=== PATIENT | female | born 1955 | race Caucasian/White ===

== ENCOUNTER 2023-01-24 11:11 | Outpatient (CLI) | payer MEDICARE ==
--- NOTE | 2023-01-24 15:12 | Ultrasound Report ---
PROCEDURE: Pelvic Limited or F/U INDICATIONS: LEFT INGUINAL LYMPHADENOPATHY TECHNIQUE: Real-time transabdominal scanning was performed of the groin, with image documentation. COMPARISON: None. FINDINGS: Targeted ultrasound of the left groin demonstrates irregular cystic lesion without internal nodularit y measuring 0.9 x 0.9 x 3.4 cm. IMPRESSION: Targeted ultrasound of the left groin demonstrates an irregular cystic lesion without internal nodula rity measuring 0.9 x 0.9 x 3.47 m. Findings could represent a lymphocele or irregular cystic lymph no de. Recommend follow-up in 2-3 months to establish stability. Reviewed by: Russell Campoverde MD on 01/24/2023 3:10 PM PST Approved by: Russell Campoverde MD on 01/24/2023 3:10 PM PST Station ID: [id number]
== END 2023-01-24 11:12 | disposition home or self-care (01) ==
LOC: DI 11:11
PROVIDERS: ATTEND Registered Nurse
DX: R93.89 Abnormal findings on diagnostic imaging of other specified body structures (principal)

== ENCOUNTER 2023-02-23 12:25 | Day surgery (SDC) | payer MEDICARE ==
[~2023-02-23 12:25] MED LIST: ceFAZolin 2 GM VIAL ONE
[2023-02-23] MEDS ORDERED: LACTATED RINGERS 1,000 ML IV ONE ×2 (12:30→16:08)
--- NOTE | 2023-02-23 14:36 | ANESTHESIA ---
Pre-Anesthesia VS, & Labs - Diagnosis left inguinal hernia - Procedure left open inguinal hernia Vital Signs: Temp Pulse Resp BP Pulse Ox O2 Flow Rate 36.5 C 65 16 119/59 L 100 02/23/23 12:36 02/23/23 12:36 02/23/23 12:36 02/23/23 12:36 02/23/23 12:36 Height: 5 ft 4 in Weight (kg): 51.4 kg Body Mass Index: 19.4 BMI Classification: Normal - NPO >8 hours - Is Patient ?: No Home Medications and Allergies Home Medications: Ambulatory Orders Atorvastatin [Lipitor] 20 mg PO DAILY 02/16/23 Calcium Carbonate [Calcium] 600 mg PO DAILY 02/16/23 Multivitamin 1 each PO DAILY 02/16/23 lisinopriL [Zestril] 5 mg PO DAILY 02/16/23 Atorvastatin [Lipitor] 20 mg PO DAILY 02/16/23 Calcium Carbonate [Calcium] 600 mg PO DAILY 02/16/23 Multivitamin 1 each PO DAILY 02/16/23 lisinopriL [Zestril] 5 mg PO DAILY 02/16/23 Allergies/Adverse Reactions: Allergies Allergy/AdvReac Type Severity Reaction Status Date / Time No Known Drug Allergies Allergy Verified 02/16/23 11:37 Anes History & Medical History - Anesthetic History Anesthesia Complications: reports: No previous complications - Medical History Cardiovascular: reports: None, Hypertension Pulmonary: reports: None Gastrointestinal: reports: None Urinary: reports: None Neuro: reports: CVA (hemmoragic 5 years ago, 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) Musculoskeletal: reports: None Endocrine/Autoimmune: reports: None Skin: reports: None - Surgical History General: reports: Colonoscopy Gynecologic: reports: Other Orthopedic: reports: Hip replacement Exam General: Alert, Oriented x3, Cooperative Dental: WNL Mouth Opening: Greater than 4 Fingerbreadths Mallampati classification: II Thyromental Distance: greater than 6 cm Respiratory: Lungs clear Cardiovascular: Regular rate Plan Anesthesia Type: MAC, Total IV Consent for Procedure(s) Verified and Reviewed: Yes Code Status: Attempt Resuscitation ASA classification: 2-Mild systemic disease Is this case an emergency?: No
[2023-02-23] MEDS ORDERED: fentaNYL 100 MCG/2 ML VIAL ONE (14:59)
[2023-02-23] MEDS ORDERED: BUPIVACAINE 0.25% PF 30 ML VIAL ONE (14:59)
[2023-02-23] MEDS ORDERED: LIDOCAINE-PF 2% 10 ML AMP SUBQ ONE (14:59)
[2023-02-23] MEDS ORDERED: MIDAZOLAM 2 MG/2 ML VIAL ONE (14:59)
[2023-02-23] MEDS ORDERED: PROPOFOL 500 MG/50 ML 500 MG/50 ML VIAL ONE (14:59)
[2023-02-23] MEDS ORDERED: LIDOCAINE-MPF 1% 30 ML VIAL ONE (14:59)
[2023-02-23] MEDS ORDERED: LIDOCAINE 1% 50 ML MDV SUBQ ONE ×2 (15:52)
[2023-02-23] MEDS ORDERED: BUPIVACAINE 0.25% PF 30 ML VIAL SUBQ ONE ×2 (15:53)
[2023-02-23] MEDS ORDERED: ONDANSETRON 4 MG/2 ML VIAL ONE (15:59)
[2023-02-23] MEDS ORDERED: ONDANSETRON 4 MG/2 ML VIAL IVP PRN (16:02)
[2023-02-23] MEDS ORDERED: fentaNYL 100 MCG/2 ML VIAL IVP PRN (16:02)
[2023-02-23] MEDS ORDERED: NALOXONE 0.4 MG/ML VIAL IVP PRN (16:02)
[2023-02-23] MEDS ORDERED: ATROPINE ABBOJECT 1 MG/10 ML SYRINGE IVP PRN (16:02)
[2023-02-23] MEDS ORDERED: MORPHINE 2 MG/ML CARPUJECT IVP PRN (16:02)
[2023-02-23] MEDS ORDERED: HYDROmorphone 0.5 MG/0.5 ML SYRINGE IVP PRN (16:02)
[2023-02-23] MEDS ORDERED: HYDROcod/ACETAM 5/325 MG TABLET PO PRN (16:14)
--- NOTE | 2023-02-23 16:19 | OPERATIVE REPORT ---
Operative Report - General Procedure Date: 02/23/23 Planned Procedure: open left inguinal hernia repair with mesh Pre-Op Diagnosis: indirect left inguinal hernia Procedure Performed: open repair left inguinal hernia with mesh Post Op Diagnosis: same - Procedure Note Primary Surgeon: sintia wong Anesthesia Technique: Local, MAC Pathology: sac sent Estimated Blood Loss (mL): 2 Drain/Tube Type: Other (none) Indications: painful hernia lump Findings: indirect inguinal hernia sac with fluid. benign in appearance. sac was not communicating with abdomen Complications: none - Other Other Information/Narrative: The patient was properly notified brought to the operating room and placed in supine position. Monitored anesthesia care was given. Sedation was given. She was prepped and draped in a sterile fashion and given preoperative antibiotics. A 5 cm incision was made in the direction of Dami's lines directly overlying the marked area of the hernia. Dissection proceeded with cutting current. The superficial epigastric vein was not within the area of surgery. Local anesthetic was given throughout the procedure. Dissection proceeded down to the aponeurosis. Aponeurosis was opened in the direction of its fibers and extended to the external ring. The round ligament was mobilized and brought up. The ilioinguinal nerve was cut at musculature and removed. Preperitoneal adipose tissue was mobilized clamped and tied with 2-0 silk and divided. The round ligament and indirect hernia sac was further mobilized back to the internal ring. It was clamped and suture-ligated with a 2-0 silk. The remainder of the round ligament was removed with cautery. Polypropylene mesh was then cut to size and without tails. It was secured to the pubic tubercle along the shelving border of Poupart's ligament and medially along the musculature fascia of the internal oblique. Multiple interrupted 0 Ethibond sutures were used. The mesh lay in good position without tension. Aponeurosis was closed with a running 2-0 Vicryl suture. Vladimir's was closed with interrupted 3-0 Vicryl suture. Buried interrupted subdermal 3-0 Vicryl sutures were then placed. Skin was closed with a running 4-0 Monocryl subcuticular suture. Dressing was applied. She tolerated the procedure very well.
[2023-02-23 16:32] VITALS: O2SAT 100
[2023-02-23 16:41] VITALS: BP 129/65
[2023-02-23] MEDS ORDERED: LACTATED RINGERS 1,000 ML IV SCH (17:00)
--- NOTE | 2023-02-23 18:08 | ANESTHESIA POST OP EVALUATION ---
Anesthesia Post Eval - Post Anesthesia Eval Vitals: Last Vital Signs Temp 36 C L 02/23/23 16:31 Pulse 59 L 02/23/23 16:31 Resp 16 02/23/23 16:31 BP 129/65 02/23/23 16:31 Pulse Ox 100 02/23/23 16:31 O2 Flow Rate CV Function Including HR & BP: Stable Pain Control: Satisfactory Nausea & Vomiting: Negative Mental Status: Baseline Respiratory Status: Airway Patent Hydration Status: Satisfactory Anesthesia Complications: None
== END 2023-02-23 12:26 | disposition home or self-care (01) ==
LOC: SDS 12:25
PROVIDERS: ATTEND Surgery
DX: K40.90 Unilateral inguinal hernia, without obstruction or gangrene, not specified as recurrent (principal); I10 Essential (primary) hypertension; Z79.899 Other long term (current) drug therapy; Z86.73 Personal history of transient ischemic attack (TIA), and cerebral infarction without residual deficits
CPT/HCPCS: 49505; C1781; J7120

== ENCOUNTER 2023-03-23 18:44 | Outpatient (CLI) | payer MEDICARE ==
--- NOTE | 2023-03-24 13:22 | Ultrasound Report ---
PROCEDURE: Pelvic w/Transvaginal INDICATIONS: INGUINAL MASS TECHNIQUE: Real-time scanning was performed of the pelvic organs, with image documentation. COMPARISON: Pelvic ultrasound dated 01/24/2023. FINDINGS: Uterus: Uterus is anteverted and normal in size at 5.8 x 2.0 4.2 cm. The myometrium is heterogeneou s. The endometrium measures 4.6 mm in combined thickness. An immediate TRAM is not well characteriz ed by transabdominal exam Ovaries: The right ovary measures 1.4 x 3.3 cm and the left ovary measures 1.1 x 0.8 cm. The ovaries are poorly characterized. No adnexal masses are seen. No cystic lesions measuring greater than 3 cm. Other: No pathologic free abdominal or pelvic fluid. The previously visualized fluid collection with in the left inguinal region has resolved. IMPRESSION: 1. Resolution of the left inguinal fluid collection when compared with the ultrasound dated 3. 2. Very limited pelvic ultrasound. No gross sonographic abnormalities. Reviewed by: Sravani Jerome MD on 03/24/2023 1:20 PM PST Approved by: Sravani Jerome MD on 03/24/2023 1:20 PM PST Station ID: [id number]
== END 2023-03-23 18:45 | disposition home or self-care (01) ==
LOC: DI 18:44
PROVIDERS: ATTEND Surgery
DX: R19.00 Intra-abdominal and pelvic swelling, mass and lump, unspecified site (principal)